=== PATIENT | male | born 1930 | race Caucasian/White ===

== ENCOUNTER 2022-02-02 18:15 | Emergency (ER) | payer MEDICARE, OTHER, MEDICAID ==
[2022-02-02] MEDS ORDERED: Sodium Chloride 0.9% 1,000 ML IV SCH (18:30)
[2022-02-02] MEDS ORDERED: Sodium Chloride 0.9% 10 ML Syringe FLUSH PRN (18:30)
[2022-02-02] MEDS ORDERED: Insulin Regular, Human 100 Units/ML 3 ML Vial IV ONE (18:39)
[2022-02-02] MEDS ORDERED: Sodium Chloride 0.9% 1,000 ML IV ONE ×2 (19:25→21:13)
[2022-02-02] MEDS ORDERED: Dextrose 5%-0.9% NaCl 1,000 ML IV SCH (22:30)
[2022-02-03] MEDS ORDERED: Insulin Regular, Human 100 Units/ML 3 ML Vial SUBCUT ONE ×2 (06:05→07:37)
[2022-02-03] MEDS ORDERED: Insulin Regular, Human 100 Units/ML 3 ML Vial SUBCUT STA (06:48)
[2022-02-03] MEDS ORDERED: Insulin Glargine,Human Rec. Analog 100 Units/ML 3 ML Pen SUBCUT ONE (07:36)
== END 2022-02-03 09:15 | disposition home or self-care (01) ==
LOC: JD.ED 18:15
DX: E11.65 Type 2 diabetes mellitus with hyperglycemia (principal); Z79.899 Other long term (current) drug therapy; Z79.4 Long term (current) use of insulin
CPT/HCPCS: 36415; 80053; 81001; 82009; 82800; 82947; 83735; 84100; 85025; 87040; 96360; 96361; 99284; 99285-25; J1815-GY; J3490; J7030; J7042